=== PATIENT | male | born 1940 | race Caucasian/White ===

== ENCOUNTER 2018-10-19 15:40 | Inpatient (IN) | payer MEDICARE ==
[~2018-10-19] VITALS: Ht 172.7 cm; Wt 77.7 kg
[~2018-10-19 15:40] MED LIST: B Complete1 EACH PO; DOXY100T53 PO; ERGO400 PO; GINGER ROOT1 GM MC; OMEPRAZOLE MAGN20 MG PO
[2018-10-19 16:10] LABS: BASOPHILS ABSOLUTE AUTO 0.06 K/mm3 (0.00-0.23); BASOPHILS PERCENT AUTO 1 % (0-2); EOSINOPHILS ABSOLUTE AUTO 0.17 K/mm3 (0.00-0.68); EOSINOPHILS PERCENT AUTO 2 % (0-6); Hematocrit 41.7 % (37.0-53.0); Hemoglobin 14.1 g/dL (13.5-17.5); IMMATURE GRAN ABSOLUTE AUTO 0.06 K/mm3 (0.00-0.10); IMMATURE GRAN PERCENT AUTO 1 % (0-1); LYMPHOCYTES ABSOLUTE AUTO 0.67 K/mm3 (0.84-5.20); LYMPHOCYTES PERCENT AUTO 9 % (21-46); MONOCYTES ABSOLUTE AUTO 0.49 K/mm3 (0.16-1.47); MONOCYTES PERCENT AUTO 7 % (4-13); Mean Corpuscular HGB 35.2 pg (26.0-34.0); Mean Corpuscular HGB Conc 33.8 g/dL (31.5-36.5); Mean Corpuscular Volume 104 fL (80-100); Mean Platelet Volume 9.8 fL (9.1-12.4); NEUTROPHILS ABSOLUTE AUTO 5.93 K/mm3 (1.96-9.15); NEUTROPHILS PERCENT AUTO 80 % (41-73); Platelet Count 200 K/mm3 (150-400); RDW Coefficient Variation 13.6 % (11.7-14.2); RDW Standard Deviation 52.5 fL (35.1-46.3); Red Blood Cell Count 4.01 M/mm3 (4.30-5.90); White Blood Cell Count 7.38 K/mm3 (4.00-11.30)
[2018-10-19 16:37] LABS: Alanine Aminotransfer (ALT/SGP 23 U/L (12-78); Albumin, Blood 3.5 g/dL (3.4-5.0); Albumin/Globulin Ratio 0.9 (0.8-1.8); Alk Phos 64 U/L (50-136); Anion Gap 8 mmol/L (6-16); Aspartate Aminotrans (AST/SGOT 30 U/L (12-37); Bilirubin, Total 1.4 mg/dL (0.1-1.0); Blood Urea Nitrogen 20 mg/dL (8-24); CO2, Blood 28 mmol/L (21-32); Calcium, Blood 8.4 mg/dL (8.5-10.1); Chloride, Blood 97 mmol/L (98-108); Glomerular Filtration Rate >60 (60-); Glucose, Blood 109 mg/dL (70-99); Potassium, Blood 4.2 mmol/L (3.5-5.5); Sodium, Blood 133 mmol/L (136-145); Total Protein, Blood 7.5 g/dL (6.4-8.2)
--- NOTE | 2018-10-19 17:02 | NUR ---
Echocardiogram completed
[2018-10-19] MEDS ORDERED: CHOL10002 PO (17:41)
[2018-10-19] MEDS ORDERED: PYRI100 PO (17:42)
[2018-10-19] MEDS ORDERED: FERSU300 PO (17:42)
[2018-10-19 19:08] LABS: International Normalized Ratio 1.14; Prothrombin Time Results 11.9 Sec (9.7-11.5)
[2018-10-19 19:34] LABS: CHOL/HDL RATIO 1.8; Cholesterol 135 mg/dL (50-200); HDL Cholesterol 73 mg/dL (>39); LDL/HDL RATIO 0.7; Low Density Lipoprotein Chol 53 mg/dL (0-110); Triglycerides 47 mg/dL (30-160); Very Low Density Lipoprot Chol 9 mg/dL (6-32)
--- NOTE | 2018-10-20 01:58 | NUR ---
PATIENT ARRIVED TO [facility] AT APPROX 2009, ADMISSION COMPLETED. PATIENT ORIENTED TO ROOM, CALL LIGHT AND POLICIES. PATIENT ORIENTED, ALERT, AMBULATORY WITH SBA AND NO S/S OF DIZZY SENSATIONS. PATIENT O2 SATURATION FREQUENTLY DIPS TO APPRX 78% AND WITHIN 60 SECOUNDS IS BACK AT >90%. 2L O2 NC PLACED. PATIENT STATED THAT HE HAD BROKEN APPROX 5-6 RIBS ON HIS RIGHT SIDE AND THEY HAD NEVER HEALED PROPERLY (PAIN WITH COUGH OR PRESSURE). ORTHOSTATICS COMPLETED: LYING: UI=823/82, HR=95 SITTING: LQ=815/80, HR=97 STANDING: NS=079/80, HR=95
[2018-10-20 03:12] LABS: BASOPHILS ABSOLUTE AUTO 0.06 K/mm3 (0.00-0.23); BASOPHILS PERCENT AUTO 1 % (0-2); EOSINOPHILS ABSOLUTE AUTO 0.09 K/mm3 (0.00-0.68); EOSINOPHILS PERCENT AUTO 2 % (0-6); Hematocrit 39.3 % (37.0-53.0); Hemoglobin 13.5 g/dL (13.5-17.5); IMMATURE GRAN ABSOLUTE AUTO 0.03 K/mm3 (0.00-0.10); IMMATURE GRAN PERCENT AUTO 1 % (0-1); LYMPHOCYTES ABSOLUTE AUTO 1.04 K/mm3 (0.84-5.20); LYMPHOCYTES PERCENT AUTO 18 % (21-46); MONOCYTES ABSOLUTE AUTO 0.64 K/mm3 (0.16-1.47); MONOCYTES PERCENT AUTO 11 % (4-13); Mean Corpuscular HGB 35.4 pg (26.0-34.0); Mean Corpuscular HGB Conc 34.4 g/dL (31.5-36.5); Mean Corpuscular Volume 103 fL (80-100); NEUTROPHILS ABSOLUTE AUTO 3.95 K/mm3 (1.96-9.15); NEUTROPHILS PERCENT AUTO 68 % (41-73); Platelet Count 193 K/mm3 (150-400); RDW Coefficient Variation 13.5 % (11.7-14.2); RDW Standard Deviation 51.7 fL (35.1-46.3); Red Blood Cell Count 3.81 M/mm3 (4.30-5.90); White Blood Cell Count 5.81 K/mm3 (4.00-11.30)
[2018-10-20 03:26] LABS: Anion Gap 6 mmol/L (6-16); Blood Urea Nitrogen 18 mg/dL (8-24); Bun/Creatinine Ratio 21.4 (12.0-20.0); CO2, Blood 28 mmol/L (21-32); Calcium, Blood 8.2 mg/dL (8.5-10.1); Chloride, Blood 99 mmol/L (98-108); Creatinine, Blood 0.84 mg/dL (0.60-1.20); Glomerular Filtration Rate >60 (60-); Glucose, Blood 95 mg/dL (70-99); Potassium, Blood 3.9 mmol/L (3.5-5.5); Sodium, Blood 133 mmol/L (136-145)
--- NOTE | 2018-10-20 06:23 | NUR ---
SHIFT SUMMARY: PATIENT VSS ALL NIGHT, PLACED ON 2L O2 AND SLEPT WELL WITH NO O2. PATIENT STATES HE FEELS BETTER THIS AM AND HAS NO DIZZY OR 'WOBBLY' SENSATIONS. PATIENT COMPLIANT WITH CALL LIGHT, BED LOW AND LOCKED, CALL LIGHT WITHIN REACH
--- NOTE | 2018-10-20 08:24 | NUR ---
NURSING PCU DAYSHIFT: Assumed care of pt at approx 0700. A/O, pleasant, cooperative w/care. Denies any pain/discomfort. Skin is intact w/no breakdown noted. Ambulating independently and w/o difficulty. Tele in place, NSR, no c/o CP/pressure, SBP 140's prior to a.m. meds, trace BLE edema. L/S dim in R mid and lower lobes, denies dyspnea at this time, O2 sat mid 90's on RA, no noted cough. Abd SNT, BT+, voiding w/o difficulty per pt. PIV x1, s/l. Pt denies any current needs or questions regarding plan of care. Seen by PMD and planning technician this a.m., new d/o received. Plan for thoracentesis tomorrow, lovenox and ASA being held. Call light remains in reach, cont to monitor for any changes.
--- NOTE | 2018-10-20 16:12 | NUR ---
NURSING PCU DAYSHIFT SUMMARY: No significant changes noted t/o the shift. Pt up in room w/o difficulty, no c/o dizziness/light headedness, no rhythm changes noted. Head CT and carotid doppler completed, results reviewed. Seen by PMD and supervisor in circuit testing, new d/o received. Plan for thoracentesis tomorrow (after anticoagulants have been held for 24+ hrs - 81mg asa okay), and L/R cath once thora results received. Spouse at bedside t/o the afternoon, plan of care discussed w/supervisor in circuit testing in room, all questions addressed. Pt and s/o deny any questions/needs at this time. Call light in reach, cont to monitor until rpt is given to NOC RN.
--- NOTE | 2018-10-20 19:17 | NUR ---
ASSUMED CARE, PATIENT SITTING UP IN CHAIR CONVERSING WITH THIS RN, NO C/O AT THIS TIME SEE [facility] ASSESSMENT FOR FULL ASSESSMENT. PATIENT INDEPENENT IN ROOM, CALL LIGHT AVAILABLE, WILL MONITOR.
[2018-10-21 04:59] LABS: BASOPHILS ABSOLUTE AUTO 0.05 K/mm3 (0.00-0.23); BASOPHILS PERCENT AUTO 1 % (0-2); EOSINOPHILS ABSOLUTE AUTO 0.23 K/mm3 (0.00-0.68); EOSINOPHILS PERCENT AUTO 4 % (0-6); Hematocrit 40.9 % (37.0-53.0); Hemoglobin 14.1 g/dL (13.5-17.5); IMMATURE GRAN ABSOLUTE AUTO 0.02 K/mm3 (0.00-0.10); IMMATURE GRAN PERCENT AUTO 0 % (0-1); LYMPHOCYTES ABSOLUTE AUTO 0.74 K/mm3 (0.84-5.20); LYMPHOCYTES PERCENT AUTO 13 % (21-46); MONOCYTES ABSOLUTE AUTO 0.52 K/mm3 (0.16-1.47); MONOCYTES PERCENT AUTO 9 % (4-13); Mean Corpuscular HGB 35.3 pg (26.0-34.0); Mean Corpuscular HGB Conc 34.5 g/dL (31.5-36.5); Mean Corpuscular Volume 102 fL (80-100); Mean Platelet Volume 10.3 fL (9.1-12.4); NEUTROPHILS ABSOLUTE AUTO 4.05 K/mm3 (1.96-9.15); NEUTROPHILS PERCENT AUTO 72 % (41-73); Platelet Count 198 K/mm3 (150-400); RDW Coefficient Variation 13.4 % (11.7-14.2); RDW Standard Deviation 51.6 fL (35.1-46.3); White Blood Cell Count 5.61 K/mm3 (4.00-11.30)
[2018-10-21 05:37] LABS: Anion Gap 6 mmol/L (6-16); Blood Urea Nitrogen 19 mg/dL (8-24); Bun/Creatinine Ratio 22.7 (12.0-20.0); CO2, Blood 28 mmol/L (21-32); Calcium, Blood 8.1 mg/dL (8.5-10.1); Chloride, Blood 98 mmol/L (98-108); Creatinine, Blood 0.84 mg/dL (0.60-1.20); Glomerular Filtration Rate >60 (60-); Glucose, Blood 99 mg/dL (70-99); Sodium, Blood 132 mmol/L (136-145)
--- NOTE | 2018-10-21 05:50 | NUR ---
NO ACUTE CHANGES THIS SHIFT. CALL LIGHT IN REACH, ROOM TIDIED, WILL MONITOR TILL DAYSHIFT HANDOFF.
--- NOTE | 2018-10-21 09:52 | NUR ---
NURSING PCU DAYSHIFT: Assumed care of pt at approx 0700. A/O, pleasant, cooperative w/care. Denies any pain/discomfort. Ambulates independently ang w/o difficulty, no c/o dizziness/light headedness. Skin is intact w/no breakdown noted. Tele in place, NSR, no c/o CP/pressure, SBP 130's prior to a.m. meds, no noted edema. L/S dim in R mid/lower lobes, denies dyspnea at rest, respirations shallow, O2 sat mid 90's on RA. Abd SNT, BT+, voiding w/o difficulty. PIV x1, flushes well. Plan for thoracentesis at approx 11 per U/S. Seen by cardiology and PMD, new d/o received. Pt denies any current needs or questions regarding plan of care. Call light in reach, cont to monitor for any changes.
[2018-10-21 12:05] LABS: Automated BF WBC Count 0.184 K/mm3 (0-999); Body Fluid WBC Count 184 /mm3 (0-999)
[2018-10-21 12:19] LABS: Albumin, Body Fluid 2.2 g/dL; Glucose, Body Fluid 108 mg/dL; Protein, Body Fluid 3.7 g/dL
[2018-10-21 12:39] LABS: RBC Count, Body Fluid 3 /mm3 (0-0)
[2018-10-21 13:08] LABS: Color, Body Fluid L Yellow (None-Yellow); Total Cell Count, Body Fluid 100
[2018-10-21 13:09] LABS: Appearance, Body Fluid Clear (Clear)
--- NOTE | 2018-10-21 16:31 | NUR ---
NURSING PCU DAYSHIFT SUMMARY: Thoracentesis completed this a.m., pt tolerated well, R lobe L/S improved. O2 sat 99% on RA, experiences mild cough w/deep inspiration. Pt states that he is feeling improved from a respiratory standpoint. Fluid sent to lab as ordered. Cardiology continues to plan for L/R cardiac cath when thora fluid result received. Pt and spouse deny any questions regarding this plan of care. Pt has been up in room independently and w/o difficulty. Denies any questions/needs, call light in reach, cont to monitor until rpt is given to NOC RN.
--- NOTE | 2018-10-21 19:31 | NUR ---
ASSUMED CARE, PATIENT LAYING IN BED COVERSING APPROPRIATLU, NO COMPLAINTS AT THIS TIME. SEE [facility] FOR FULL ASSESSMENT. PLANS FOR SHIFT DISSCUSSED, CLL LIGHT IN REACH, WILL MONITOR.
[2018-10-22 03:43] LABS: BASOPHILS ABSOLUTE AUTO 0.05 K/mm3 (0.00-0.23); BASOPHILS PERCENT AUTO 1 % (0-2); EOSINOPHILS ABSOLUTE AUTO 0.27 K/mm3 (0.00-0.68); EOSINOPHILS PERCENT AUTO 5 % (0-6); Hematocrit 40.6 % (37.0-53.0); Hemoglobin 13.9 g/dL (13.5-17.5); IMMATURE GRAN ABSOLUTE AUTO 0.03 K/mm3 (0.00-0.10); IMMATURE GRAN PERCENT AUTO 1 % (0-1); LYMPHOCYTES ABSOLUTE AUTO 0.86 K/mm3 (0.84-5.20); LYMPHOCYTES PERCENT AUTO 15 % (21-46); MONOCYTES ABSOLUTE AUTO 0.64 K/mm3 (0.16-1.47); MONOCYTES PERCENT AUTO 11 % (4-13); Mean Corpuscular HGB 35.2 pg (26.0-34.0); Mean Corpuscular HGB Conc 34.2 g/dL (31.5-36.5); Mean Corpuscular Volume 103 fL (80-100); Mean Platelet Volume 10.2 fL (9.1-12.4); NEUTROPHILS ABSOLUTE AUTO 4.08 K/mm3 (1.96-9.15); NEUTROPHILS PERCENT AUTO 69 % (41-73); Platelet Count 200 K/mm3 (150-400); RDW Coefficient Variation 13.4 % (11.7-14.2); RDW Standard Deviation 51.7 fL (35.1-46.3); Red Blood Cell Count 3.95 M/mm3 (4.30-5.90); White Blood Cell Count 5.93 K/mm3 (4.00-11.30)
[2018-10-22 04:03] LABS: Anion Gap 5 mmol/L (6-16); Blood Urea Nitrogen 19 mg/dL (8-24); Bun/Creatinine Ratio 22.9 (12.0-20.0); CO2, Blood 29 mmol/L (21-32); Chloride, Blood 98 mmol/L (98-108); Creatinine, Blood 0.83 mg/dL (0.60-1.20); Glomerular Filtration Rate >60 (60-); Glucose, Blood 93 mg/dL (70-99); Magnesium, Blood 1.9 mg/dL (1.6-2.4); Phosphorus, Blood 3.1 mg/dL (2.5-4.9); Potassium, Blood 3.9 mmol/L (3.5-5.5); Sodium, Blood 132 mmol/L (136-145)
--- NOTE | 2018-10-22 07:29 | NUR ---
ASSUMED CARE: PT SITTING UPRIGHT IN CHAIR THIS AM. INDEPENDENT IN ROOM. DR GONZALEZ CAME TO SEE HIM AND STATES IF NO CYTOLOGY BY 10AM, MAY ALLOW PT TO EAT. NO FURTHER NEEDS OR CONCERNS AT THIS TIME.
--- NOTE | 2018-10-22 17:09 | NUR ---
Phone call from the pt's , stating that the pt talked to her on the phone and that he was "freaking out" because his doctor had changed, and that they had started to do his procedure but then it had been cancelled. Explained to the that there was a new hospitalist today, and that Dr. Fregoso also saw the patient and spoke to him this morning about waiting for cytology results before proceeding with the angiogram.
--- NOTE | 2018-10-22 18:41 | NUR ---
SHIFT SUMMARY: PT EXPRESSED FRUSTRATION WITH WAITING FOR PROCEDURE AND LAB RESULTS FROM THORACENTESIS. DISCUSSED THIS WITH PT AND DISCUSSED PLAN AND ORDERS. PT AMBULATORY IN ROOM, DENIES CHEST PAIN. NSR ON TELE. NO FURTHER NEEDS OR CONCERNS AT THIS TIME.
--- NOTE | 2018-10-22 21:22 | NUR ---
PCU NIGHTSHIFT ASSUMED CARE OF PT APPROX. 1900. PT A&OX4. VITAL SIGNS STABLE. ASSESSMENT COMPLETED. PT ABLE TO AMBULATE AROUND ROOM AND UNIT AND TOLERTATES WILL. NO S/SX OF LIGHTHEADED OR DIZZINESS WITH ANY OF THIS. NO S/SX OF ACUTE DISTRESS. PT SITTING AT BEDSIDE AT THIS TIME. PT REPORTS FEELING BETTER THAN HE HAS. NO TROUBLES/LABORED BREATHING AT THIS TIME. PT REPROTS THIS TO HAVE BEEN BETTER SINCE THORACENTESIS. CALL LIGHT IN REACH AND PT DENIES ANY NEEDS AT THIS TIME. WILL CONTINUE TO MONITOR.
--- NOTE | 2018-10-23 06:50 | NUR ---
SHIFT SUMMARY PT PLEASANT, COOPERATIVE AND USES CALL LIGHT APPROPRAITELY. PT REMAINS A&OX4. ASSESSMENT FINDINGS REMAIN UNCHANGED. VITAL SIGNS STABLE. PT WAS ABLE TO REST FOR MOST OF SHIFT. PT HAS HAD NOTHING BY MOUTH SINCE MIDNIGHT FOR THE POSSIBLE CHANCES THE RESULTS ARE RECIEVED THEN PT WOULD BE READY FOR PROCEDURE. HEART RHYTHM REMAINS UNCHANGED. BED IN LOW POSITION, CALL LIGHT IN REACH AND PT DENIES ANY NEEDS AT THIS TIME. WILL CONTINUE TO MONITOR UNTIL HANDOFF TO DAYSHIFT RN.
[2018-10-23 08:47] LABS: Albumin, Blood 3.2 g/dL (3.4-5.0); Anion Gap 1 mmol/L (6-16); Blood Urea Nitrogen 16 mg/dL (8-24); Bun/Creatinine Ratio 19.5 (12.0-20.0); CO2, Blood 35 mmol/L (21-32); Calcium, Blood 8.4 mg/dL (8.5-10.1); Chloride, Blood 94 mmol/L (98-108); Creatinine, Blood 0.82 mg/dL (0.60-1.20); Glomerular Filtration Rate >60 (60-); Glucose, Blood 94 mg/dL (70-99); Phosphorus, Blood 2.8 mg/dL (2.5-4.9); Sodium, Blood 130 mmol/L (136-145)
--- NOTE | 2018-10-23 18:16 | NUR ---
END OF SHIFT; PT IS MED WITH TELE STATUS. HE AMBULATES WITHOUT ASSIST IN ROOM. PER (SP) HE IS GOING TO HAVE ANGIO ON THURSDAY AND SHOULD BE NPO AFTER MIDNIGHT ON THURSDAY NIGHT UNLESS SOMETHING SHOWS IN HIS CYTOLOGY REPORT PRIOR. HIS LUNGS ARE DIM IN THE BASES AND SLIGHT CRACKLES ARE NOTED THAT CLEAR WITH COUGH. PT EXPRESSES THAT HE IS VERY BORED AND WANTS TO GO HOME. WILL CONTINUE TO MONITOR THIS PATIENT UNTIL REPORT AND HAND OFF TO NOC SHIFT RN.
--- NOTE | 2018-10-23 22:16 | NUR ---
PCU NIGHTSHIFT ASSUMED CARE OF PT APPROX. 1900. PT A&O X4. ASSESSMENT COMPLETED. VITAL SIGNS STABLE. PT UP IN SHOWER AT START OF SHIFT. PT REPORTS TOLERATING THIS WELL. DENIES ANY DIZZINESS OR LIGHTHEADNESS WITH THIS. PT REPORTS FEELING "GOOD". PT REPORTS BREATHING TO BE IMPORVED FROM PREVIOUS SHIFTS. OXYGEN SATS IN 90'S ON ROOM AIR. BED REPORTS READY TO GET SOME REST TONIGHT. DISCUSSED WITH PATIENT ABOUT SITUATION AND IMPORTANCE OF CARE AND TREATMENT AT THIS TIME. PT REPORTS FEELING BETTER ABOUT STAYING IN HOSPTIAL AT THIS TIME AFTER DISUCSSING THIS. BED IN LOW POSITION, CALL LIGHT IN REACH AND PT DENIES ANY NEEDS AT THIS TIME.
[2018-10-24 04:10] LABS: Albumin, Blood 3.2 g/dL (3.4-5.0); Anion Gap 2 mmol/L (6-16); Blood Urea Nitrogen 16 mg/dL (8-24); Bun/Creatinine Ratio 18.3 (12.0-20.0); CO2, Blood 32 mmol/L (21-32); Calcium, Blood 8.3 mg/dL (8.5-10.1); Chloride, Blood 95 mmol/L (98-108); Creatinine, Blood 0.88 mg/dL (0.60-1.20); Glomerular Filtration Rate >60 (60-); Glucose, Blood 88 mg/dL (70-99); Phosphorus, Blood 3.2 mg/dL (2.5-4.9); Potassium, Blood 4.2 mmol/L (3.5-5.5); Sodium, Blood 129 mmol/L (136-145)
--- NOTE | 2018-10-24 05:00 | NUR ---
NOTE NOTIFIED PHYSICIAN OF NA LEVELS THIS MORNING. NO NEW ORDERS AT THIS TIME.
--- NOTE | 2018-10-24 05:15 | NUR ---
SHIFT SUMMARY PT PLEASANT, COOPERATIVE AND USES CALL LIGHT APPROPRAITELY. PT REMAINS A&OX4. ASSESSMENT FINDINGS UNCHANGED. VITAL SIGNS STABLE. NO CHANGE IN HEART RATE OR RHYTHM. PT WAS ABLE TO REST FOR MOST OF SHIFT. NO S/SX OF ACUTE DISTRESS. BED IN LOW POSITION, CALL LIGHT IN REACH AND PT DENIES ANY NEEDS AT THIS TIME. WILL CONTINUE TO MONITOR UNTIL HANDOFF TO DAYSHIFT RN.
--- NOTE | 2018-10-24 08:33 | NUR ---
PT OFF FLOOR TO [facility] FOR ANGIO
--- NOTE | 2018-10-24 18:36 | NUR ---
END OF SHIFT; PT HAD ANGIO TODAY WITH NO INTERVENTIONS. PER REPORT HE IS GOING TO NEED AN OUTPATIENT TAVR AND FOLLOW UP WITH . HIS TRBAND IS DEFLATED AND REMOVED ARM BOARD IN PLACE. PT IS REMAINING ONE MORE NIGHT BECAUSE HIS SODIUM LEVEL IS STILL DROPPING AND IS NOW 129 PER SHE IS WATCHING TO SEE IF IT STABILIZES. PT IS INDEPENDENT IN THE ROOM AND ABLE TO MAKE HIS NEEDS KNOWN. HE IS COOPERATIVE WITH CARE AND HAS PLEASANT AFFECT. WILL CONTINUE TO MONITOR THIS PATIENT CLOSELY UNTIL REPORT AND HANDOFF TO NOC SHIFT RN.
--- NOTE | 2018-10-25 01:26 | NUR ---
PCU NIGHTSHIFT ASSUMED CARE OF PT APPROX. 1900. PT A&OX4. ASSESSMENT COMPLETED. VITAL SIGNS STABLE. PT HAS RT RADIAL SITE POST ANGIO TODAY 630. RADIAL SITE C,D,I WITH NO S/SX OF BLEEDING, HEMATOMA OR SWELLING. DRESSING OVER INCISION SITE AND ARMBOARD REMAINS IN PLACE. PT ABLE TO AMBULATE AROUND UNIT AND TOLERATES WELL. PT HAD SOME QUESTIONS ABOUT TREATMENT, DIAGNOSIS AND PROCEDURE. ANSKED QUESTIONS BEST OF ABILITY. CORPORATE ACCOUNTING MANAGER WAS ABLE TO PROVIDE PT WITH PRINTED EDUCATION TO HELP ANSWER SOME QUESTIONS. PT REPORTS HAVING LOOSE STOOL THIS EVENING AND DOES NOT WANT EVENING MEDICATIONS, SEE [facility]. BED IN LOW POSITION, CALL LIGHT IN REACH AND PT DENIES ANY NEEDS AT THIS TIME.
[2018-10-25 04:22] LABS: Albumin, Blood 2.9 g/dL (3.4-5.0); Anion Gap 7 mmol/L (6-16); Blood Urea Nitrogen 18 mg/dL (8-24); Bun/Creatinine Ratio 23.7 (12.0-20.0); CO2, Blood 25 mmol/L (21-32); Chloride, Blood 99 mmol/L (98-108); Creatinine, Blood 0.76 mg/dL (0.60-1.20); Glomerular Filtration Rate >60 (60-); Glucose, Blood 82 mg/dL (70-99); Phosphorus, Blood 2.8 mg/dL (2.5-4.9); Sodium, Blood 131 mmol/L (136-145)
--- NOTE | 2018-10-25 06:20 | NUR ---
SHIFT SUMMARY PT PLEASANT, COOPERATIVE AND USES CALL LIGHT APPROPRIATELY. VITAL SIGNS STABLE. ASSESSMENT FINDIGNS REMAIN UNCAHNGED SINCE START OF SHIFT. PT ABLE TO SLEEP MOST OF SHIFT. PT WENT FOR XRAY THIS MORNING. PT WAS ABLE TO WALK WITH STAFF TO IMAGING AND WALKED BACK AND TOLERATED WELL. PT CURRENLTY UP IN CHAIR THIS MORNING. CALL LIGHT IN REACH AND PT DENIES ANY NEEDS AT THIS TIME. WILL CONTINUE TO MONITOR UNTIL HANDOFF TO DAYSHIFT RN.
--- NOTE | 2018-10-25 07:20 | NUR ---
AM NOTE. ASSUMED CARE OF PT APROX 0700, PT IS A&Ox4 AND IND IN THE ROOM. PT HAS BEEN WALKING THE HALLS AND VERY ANXIOUS TO GO HOME. TELE INTACT, NSR IN THE 70'S PER DATA REVIEW SPECIALIST, PT'S BP 128/64. NO EDEMA NOTED ON ASSESSMENT. L/S CLEAR T/O AND DIM ON THE RIGHT LOWER AND MID LOBES. PT IS ON RA WITH O2 SATS >90%. BT PRESENT IN ALL QUADRANTS. PT IS CONT OF BOWEL AND BLADDER. CALL LIGHT IN REACH, BED IS LOCKED AND LOW WILL CONTINUE TO MONITOR.
[2018-10-25] MEDS ORDERED: LO-DOSE ASPIRIN81 MG PO (11:44)
[2018-10-25] MEDS ORDERED: ATOR20 PO (11:45)
[2018-10-25] MEDS ORDERED: Colace100 MG PO (11:46)
[2018-10-25] MEDS ORDERED: SENN187 PO (11:50)
[2018-10-25] MEDS ORDERED: METO25ER PO (11:50)
[2018-10-25] MEDS ORDERED: FURO20 PO (11:52)
[2018-10-25] MEDS ORDERED: LISI5 PO (11:53)
== END 2018-10-25 12:41 | disposition home or self-care (01) | DRG 280 ==
LOC: ER 15:40 → PCU 18:36
PROVIDERS: Emergency Medicine; Internal Medicine; Internal Medicine Cardiovascular Disease; ADMIT Internal Medicine
PROC: 0W993ZX Drainage of Right Pleural Cavity, Percutaneous Approach, Diagnostic (ICD-10-PCS; 2018-10-21)
PROC: 4A023N8 Measurement of Cardiac Sampling and Pressure, Bilateral, Percutaneous Approach (ICD-10-PCS; principal; 2018-10-24)
PROC: B211YZZ Fluoroscopy of Multiple Coronary Arteries using Other Contrast (ICD-10-PCS; 2018-10-24)
DX: I11.0 Hypertensive heart disease with heart failure (principal); I21.3 ST elevation (STEMI) myocardial infarction of unspecified site; I50.21 Acute systolic (congestive) heart failure; E87.1 Hypo-osmolality and hyponatremia; I44.2 Atrioventricular block, complete; J90 Pleural effusion, not elsewhere classified; I42.9 Cardiomyopathy, unspecified; I35.0 Nonrheumatic aortic (valve) stenosis; D50.9 Iron deficiency anemia, unspecified; I73.9 Peripheral vascular disease, unspecified; Z95.0 Presence of cardiac pacemaker
CPT/HCPCS: 32555; 36415; 70450; 71045; 71046; 80048; 80053; 80061; 80069; 82042; 82945; 83735; 83880; 84157; 84484; 85025; 85610; 87070; 87205; 88108; 88305; 89051; 93005; 93010; 93306; 93458; 93880; 99152; 99153; 99285-25; C1769; C1894; J1644; J1650; J1940; J2250; J3010; J7030; Q9967